=== PATIENT | female | born 1995 | race Caucasian/White ===

== ENCOUNTER 2019-04-25 01:02 | Inpatient (IN) | payer SELFPAY ==
[2019-04-25] MEDS: Lactated Ringers 1,000 ML 50 ML IV ×2 (01:42→02:31)
[2019-04-25 02:06] LABS: Absolute Lymphocyte Count 1.04 X10^3/uL (0.83-4.51); Absolute Neutrophil Count 18.2 X10^3/uL (2.0-7.7); Basophil# 0.04 X10^3/uL; Basophil% 0.2 % (0-1); Eosinophil# 0.02 X10^3/uL; Eosinophils% 0.1 % (0-5); Hematocrit 34.5 % (37-47); Hemoglobin 12.4 g/dL (12.0-15.0); Lymphocyte # 1.04 X10^3/ul (4.0); Lymphocyte % 5.1 % (19-41); Mean Corp Hgb Conc 35.9 g/dL (32-36); Mean Corpuscular Hgb 31.8 pg (27.0-32.0); Mean Corpuscular Volume 88.5 fL (81-99); Mean Platelet Vol. 10.2 fl (6.2-12.0); Monocyte# 0.83 X10^3/uL; Monocyte% 4.1 % (0-10); NRBC Flagged by Analyzer 0 % (0-5); Neutrophil # 18.21 X10^3/uL (2.7-7.7); Neutrophil % 89.8 % (47-70); Platelet Count 176 K/mm3 (150-450); RBC Distribution Width CV 12.7 % (11.6-14.6); RBC Distribution Width SD 41.4 fl (35.1-43.9); White Blood Count 20.3 K/mm3 (4.4-11.0)
[2019-04-25 02:29] VITALS: BMI 25.0
[2019-04-25] MEDS: fentaNYL-bupivacaine (epidural) 100 ML BAG EPIDURAL (02:57)
--- NOTE | 2019-04-25 05:03 | HP.PCM_ITS ---
- Problem List (1) Active labor at term Status: Acute History Date of Admission: 04/25/19 Final DARNELL: 05/03/19 Gestational age: 38 Weeks and 6 Days History of this : This is a 23 year-old, at 38 weeks gestational age presents IAL after laboring at home. she had planned a home with a visual display manager but has had her labor stall out and she is very tired and wanting intervention for pain control. she denies any vb and admits good fm. she has had an uncomplicated . Allergies No Known Allergies Allergy (Verified 04/25/19 02:28) Home Medications: Home Medications No122/Iron/Folic Acid [ Multi Tablet] 1 ea PO DAILY 04/25/19 Smoking Status: Never smoker Alcohol: None Number of Fetus(es): 1 Heart Tracing: moderate variability reactive no decelerations category I tracing [employer]: regular History Past Pregnancies: Past Pregnancies Delivery Date Name GA/Weeks Outcome Route Weight Gender Labor Length Anesthesia Delivery Location Provider FOB Labs: Mom's Problem List Problem Status Onset Code Active labor at term Acute Mom's Labs & Results 04/25/19 04/25/19 04/25/19 01:42 01:42 01:42 WBC 20.3 H RBC 3.90 L Hgb 12.4 Hct 34.5 L MCV 88.5 MCH 31.8 MCHC 35.9 RDW Std Deviation 41.4 RDW Coeff of Carlos 12.7 Plt Count 176 MPV 10.2 Immature Gran % (Auto) 0.700 Neut % (Auto) 89.8 H Lymph % (Auto) 5.1 L [place] % (Auto) 4.1 Eos % (Auto) 0.1 Baso % (Auto) 0.2 Absolute Neuts (auto) 18.2 H Absolute Lymphs (auto) 1.04 Nucleated RBC % 0 RPR Pending Hep Bs Antigen Hepatitis C Antibody HIV 1&2 Antibody Rubella IgG Antibody Pending Blood Type Antibody Screen 04/25/19 04/25/19 01:42 01:42 WBC RBC Hgb Hct MCV MCH MCHC RDW Std Deviation RDW Coeff of Carlos Plt Count MPV Immature Gran % (Auto) Neut % (Auto) Lymph % (Auto) [place] % (Auto) Eos % (Auto) Baso % (Auto) Absolute Neuts (auto) Absolute Lymphs (auto) Nucleated RBC % RPR Hep Bs Antigen Pending Hepatitis C Antibody Pending HIV 1&2 Antibody Pending Rubella IgG Antibody Blood Type A NEGATIVE Antibody Screen NEGATIVE Course Did the patient receive No care? Current Obstetrical History Gestational Diabetes No Incompetent Cervix No Infertility No IUGR No Macrosomia No Hypertension/Pre-eclampsia No Placenta Previa/Abruption No PTL/PROM No Uterine anomaly No Oligohydramnios No Polyhydramnios No Multiple gestation No Past Medical History Asthma No Diabetes No Hypertension No Heart disease No Mitral valve prolapse No Neurologic/Seizure disorder/ No Migraines Kidney disease No Liver disease No Varicosities No Clotting disorders/Hx of DVT No Thyroid Dysfunction No Other medical diseases No Psychiatric disorders No Major trauma No Abnormal PAP smear No Sleep apnea No Mammogram in the last 2 years No Social History Marital Status: Alleged father Donnie Hx Smoking No Smoking Status Never smoker How long have you used n/a substances (years)? Expected Delivery Method: Spontaneous Vaginal Review of Systems Constitutional: Denies: Fever, Malaise Eyes: Denies: Blurred vision, Vision Change HEENT: Denies: Head Aches, Visual Changes Cardiovascular: Denies: Chest Pain, Palpitations Respiratory: Denies: Cough, Shortness of Breath, Wheezing Gastrointestinal: Denies: Abdominal Pain, Diarrhea, Nausea, Vomiting Genitourinary: Denies: Dysuria, Hematuria Musculoskeletal: Denies: Joint Pain, Muscle pain Skin: Denies: Lesions, Rash Neurological: Denies: Blurred vision, Focal weakness, Headaches Psychiatric: Denies: Anxiety, Depression Endocrine: Denies: Heat/ Cold Intolerance Hematologic/ Lymphatic: Denies: Easy Bruising, Easy Bleeding Physical Exam General: Alert, Cooperative, No apparent distress HEENT: Atraumatic, Normocephalic. Negative for: Thyromegaly, Lymphadenopathy Cardiovascular: Regular rate Lungs: Normal air movement Abdomen: Soft, Non Tender, Gravid Neurological: Deep Tendon Reflexes 2+/4 and Symmetrical, Neuro grossly intact. Negative for: Clonus SALESPERSON NECKTIES: Normal external genitalia. Negative for: Vulvar lesions Estimated gestational size: Appropriate for gestational size Presentation: Cephalic Cervix Dilation (cm): 9 Station: 0 Effacement (%): 100 Assessment/Plan All Active Problems Active labor at term (Acute) This is a 23 year-old, , at 38 weeks gestational age presents IAL epidural gbs unknown but no risk factors, SROM here at hospital, would start antibiotics if signs of chorioamnionitis or SROM>18 hours
--- NOTE | 2019-04-25 07:42 | OP.PCM_ITS ---
Problem List (1) Active labor at term Status: Acute Vaginal Delivery Maternal Presentation: Active Labor ial 38w6d Amniotic Membrane Rupture Type: Spontaneous Amniotic Fluid Description: Clear Final DARNELL: 05/03/19 Gestational age: 38 Weeks and 6 Days Date of Procedure: 04/25/19 Pre-Operative Diagnosis: ial Post-Operative Diagnosis: same Surgery/ Procedure Performed: Spontaneous Vaginal Delivery Type of Anesthesia: Epidural Description of Procedure: Patient began pushing and delivered the head in the [ALEXANDER] presentation. The head was delivered atraumatically. The anterior and posterior shoulders delivered without complication followed by the rest of the infant and the was placed on the maternal abdomen. Delayed cord clamping was employed for approximately 60 seconds. Cord was clamped and cut and gentle traction was alexis lied to the cord and the placenta delivered spontaneously immediately following it was noted to be intact with three-vessel cord. The perineum and vagina were inspected and to have a second-degree perineal laceration that was repaired in the usual fashion with 3-0 Vicryl repeat. EBL was 200 cc. Patient and infant tolerated delivery well. Presentation: ALEXANDER Placental Delivery Description: Spontaneous Placenta Disposition: [facility] Cord Vessel Description: 3 Vessels Cord Entanglement: None Estimated Blood Loss: 200 Infant A gender: Female Episiotomy Description: None Laceration: Perineal Extension/lac, 2nd degree Medications given after delivery: IV Pitocin Complications: None Multi Select Codes - Urinary/Genital Urinary/Genital CPT Codes: 97741 Vaginal Delivery Only
[2019-04-25 08:16] LABS: Rubella IgG 2.6 IU/mL
[2019-04-25] MEDS: Oxytocin 30 units/NS 500 ml 30 UNITS/500 ML IV.SOLN 334 UNITS IV (08:35)
[2019-04-25 08:46] LABS: HIV - WCH Non-Reactive (Nonreactive); Hepatitis B Surface Antigen Non-Reactive (Nonreactive); Hepatitis C Antibody Non-Reactive (Nonreactive)
[2019-04-25] MEDS: Oxytocin 30 units/NS 500 ml 30 UNITS/500 ML IV.SOLN 167 UNITS IV (09:05)
--- NOTE | 2019-04-25 12:20 | NURSING ---
Received report from Sharif Recinos RN. I will assume care of patient at that time.
[2019-04-25] MEDS: Acetaminophen 500 MG Tablet 1000 MG PO ×2 (12:39→20:48)
[2019-04-25 12:41] VITALS: BP 90/52; PULSE 110; RESP 16; TEMP 37.2; O2SAT 99
[2019-04-25 16:00] VITALS: BP 111/55; PULSE 82; RESP 16; TEMP 36.7; O2SAT 98
[2019-04-25 20:00] VITALS: BP 98/50; PULSE 84; RESP 16; TEMP 37.2
[2019-04-25 23:40] VITALS: BP 104/60; PULSE 61; RESP 16; TEMP 36.9
[2019-04-26] MEDS: Naproxen 250 MG Tablet 500 MG PO (00:20)
[2019-04-26 04:00] VITALS: BP 91/51; PULSE 65; RESP 16; TEMP 36.3
--- NOTE | 2019-04-26 05:50 | DCINST_ITS ---
Discharge Diet: No Restrictions Discharge Activity: Return to Normal Activity, May not drive while taking narcotic pain medications., May Shower May resume sexual activity in: 4-6 weeks Call your doctor if your incision/area has: Continuous Slow Oozing, Sudden Increased Bleeding, Increased Pain/ Swelling, Increased Redness, Foul Smelling Discharge Additional Instructions: If you experience any of the following, contact your healthcare provider. * Bleeding that soaks a pad every hour for 2 hours * Fever 100.4 or higher * Unrelieved incision or abdominal pain * Swelling, redness, discharge or bleeding from your incision or episiotomy site * Your incision begins to separate * Problems urinating (including inability to urinate or burning while urinating). * Visual changes * Severe headache * Flu-like symptoms * Pain or redness in one of both of your breasts * Pain, warmth, tenderness or swelling in your legs, especially the calf area * Frequent nausea and vomiting * Symptoms of depression or anxiety If you experience any of the following, call 911 or go to the nearest Emergency Room. * Chest pain * Problems breathing * Seizure activity * Partial or complete paralysis of a body part, slurred speech, weakness or drooping of the face, or a sudden inability to walk or hold your balance Allergies/Adverse Reactions: Allergies No Known Allergies Allergy (Verified 04/25/19 02:28) Medications to take at Discharge No122/Iron/Folic Acid [ Multi Tablet] 1 ea PO DAILY 04/25/19 Please Follow Up With: Arlene Acevedo MD - [phone] When: Call to make an appointment with your doctor in 6 weeks. If you had elevated Blood pressure or 4th degree laceration you will need to be seen in 2 weeks. Primary Care Physician: Care Physician,No Primary [Primary Care Provider] - Test Results: Test results from this visit will be discussed in further detail at your follow- up appointment, if applicable.
--- NOTE | 2019-04-26 05:50 | PCM.DCVAG ---
Discharge Diet: No Restrictions Discharge Activity: Return to Normal Activity, May not drive while taking narcotic pain medications., May Shower May resume sexual activity in: 4-6 weeks Call your doctor if your incision/area has: Continuous Slow Oozing, Sudden Increased Bleeding, Increased Pain/ Swelling, Increased Redness, Foul Smelling Discharge Additional Instructions: If you experience any of the following, contact your healthcare provider. Bleeding that soaks a pad every hour for 2 hours Fever 100.4 or higher Unrelieved incision or abdominal pain Swelling, redness, discharge or bleeding from your incision or episiotomy site Your incision begins to separate Problems urinating (including inability to urinate or burning while urinating). Visual changes Severe headache Flu-like symptoms Pain or redness in one of both of your breasts Pain, warmth, tenderness or swelling in your legs, especially the calf area Frequent nausea and vomiting Symptoms of depression or anxiety If you experience any of the following, call 911 or go to the nearest Emergency Room. Chest pain Problems breathing Seizure activity Partial or complete paralysis of a body part, slurred speech, weakness or drooping of the face, or a sudden inability to walk or hold your balance Allergies/Adverse Reactions: Allergies No Known Allergies Allergy (Verified 04/25/19 02:28) Medications to take at Discharge No122/Iron/Folic Acid [ Multi Tablet] 1 ea PO DAILY 04/25/19 Please Follow Up With: Arlene Acevedo MD - [phone] When: Call to make an appointment with your doctor in 6 weeks. If you had elevated Blood pressure or 4th degree laceration you will need to be seen in 2 weeks. Primary Care Physician: Care Physician,No Primary [Primary Care Provider] - Test Results: Test results from this visit will be discussed in further detail at your follow-up appointment, if applicable.
--- NOTE | 2019-04-26 07:38 | PN.OBGYN_ITS ---
Patient Problems: Active and Suspected Problems Active labor at term (Acute) Subjective: doing well no complaints pain controlled no CP SOB N V ambulating well tolerating po lochia moderate, going well - Physical Exam General: Alert, Oriented x3 Abdomen: Soft, Non Tender, Non-Distended, - - FF below U Vital Signs Temp Pulse Resp BP Pulse Ox 97.3 F L 65 16 91/51 L 98 04/26/19 04:00 04/26/19 04:00 04/26/19 04:00 04/26/19 04:00 04/25/19 16:00 Oxygen Delivery Method Room Air Weight: 150 lb Body Mass Index (BMI) 25.0 Intake and Output for Last 24 Hours 04/24/19 04/25/19 04/26/19 23:59 23:59 23:59 Output Total 1000 / 1000 Balance -1000 / -1000 Laboratory Tests Past 24 Hrs 04/25/19 04/25/19 04/25/19 01:42 01:42 11:50 Hep Bs Antigen Non-Reactive Hepatitis C Antibody Non-Reactive HIV 1&2 Antibody Non-Reactive Rubella IgG Antibody 2.6 Screen NEGATIVE Baby's Blood Type A POSITIVE Baby's AMBER NEGATIVE Medical Necessity - Tobacco Use Smoking Status: Never smoker Assessment/Plan All Active Problems Active labor at term (Acute) s/p PPD # 1 1. routine post delivery care 2. breast feeding- support given 3. rh negative 4. rubella pending 5. home today 6. Plans 6 wk follow up with tetryl nitrator operator
[2019-04-26 09:30] VITALS: BP 101/45; PULSE 92; RESP 16; TEMP 37.2; O2SAT 97
[2019-04-26 14:00] VITALS: BP 88/40; PULSE 84; RESP 16; TEMP 36.8; O2SAT 99
--- NOTE | 2019-04-26 16:05 | NURSING ---
Bedside report given to chadd ballard at 1515.
[2019-04-26 19:49] VITALS: BP 113/67; PULSE 82; RESP 16; TEMP 36.6; O2SAT 100
[2019-04-30 04:45] LABS: Rapid Plasmin Reagin (RPR) NONREACTIVE (NONREACTIVE)
== END 2019-04-26 20:39 | disposition home or self-care (01) | DRG 807 ==
PROVIDERS: Admitting Provider Obstetrics & Gynecology; Referring Provider Obstetrics & Gynecology; Visit Provider Obstetrics & Gynecology
DX: O70.1 Second degree perineal laceration during delivery (principal); Z37.0 Single live birth; Z3A.38 38 weeks gestation of pregnancy
CPT/HCPCS: 59025; 59050; 85025; 85461; 86592; 86703; 86762; 86803; 86850; 86900; 87340; 90384; 99218; J7120; G0378; J2790

== ENCOUNTER 2021-01-08 00:45 | Inpatient (IN) | payer SELFPAY ==
[2021-01-08] VITALS (18 sets, daily range): BP systolic 95–139; BP diastolic 48–74; PULSE 61–92; RESP 16–18; TEMP 36.6–37.3; O2SAT 96–100; BMI 25.7
[2021-01-08] MEDS: Lactated Ringers 500 ML 999 ML IV (00:58)
[2021-01-08 01:23] LABS: Absolute Lymphocyte Count 1.54 X10^3/uL (0.83-4.51); Absolute Neutrophil Count 9.8 X10^3/uL (2.0-7.7); Basophil# 0.02 X10^3/uL; Basophil% 0.2 % (0-1); Eosinophil# 0.03 X10^3/uL; Eosinophils% 0.2 % (0-5); Hematocrit 37.8 % (37-47); Hemoglobin 12.9 g/dL (12.0-15.0); Lymphocyte # 1.54 X10^3/ul (0.83-4.51); Lymphocyte % 12.7 % (19-41); Mean Corp Hgb Conc 34.1 g/dL (32-36); Mean Corpuscular Hgb 30.8 pg (27.0-32.0); Mean Corpuscular Volume 90.2 fL (81-99); Mean Platelet Vol. 10.1 fl (6.2-12.0); Monocyte# 0.61 X10^3/uL; NRBC Flagged by Analyzer 0 % (0-5); Neutrophil # 9.84 X10^3/uL (2.7-7.7); Neutrophil % 81.6 % (47-70); Platelet Count 221 K/mm3 (150-450); RBC Distribution Width CV 13.1 % (11.6-14.6); RBC Distribution Width SD 42.5 fl (35.1-43.9); Red Blood Count 4.19 M/mm3 (4.2-5.4); White Blood Count 12.1 K/mm3 (4.4-11.0)
[2021-01-08 01:24] LABS: Mucous, Urine 0 SEEN /hpf (<or=2+)
[2021-01-08 01:27] LABS: Color, Urine Yellow (Yellow); Glucose, Dipstick Normal (Normal); Ketone-Dipstick Negative (Negative); Leukocyte Esterase-Dipstick 25 /ul (Negative); Nitrite-Dipstick Negative (Negative); Occult Blood-Urine 250 /ul (Negative); Protein-Dipstick Negative (Negative); Specific Gravity, Urine 1.015 (1.002-1.030); Urine Bilirubin Dipstick Negative (Negative); Urine Clarity Sl. Cloudy (Clear); Urine Urobilinogen Normal (Normal)
[2021-01-08] MEDS: Lactated Ringers 1,000 ML 200 ML IV (01:30)
[2021-01-08 01:33] LABS: White Blood Cells 5-10 SEEN /hpf (0-5)
[2021-01-08 01:34] LABS: Bacteria 3+ /hpf (None Seen); Red Blood Cells-Urine 50-100 SEEN /hpf (0-5); Squamous Epithelial Cells - UA 0-5 SEEN /hpf (5-10); Transitional Epithelial - Ur 0-5 SEEN /hpf (0-5)
[2021-01-08 01:41] LABS: Amphetamine Urine VISTA NEGATIVE (<1000 ng/mL); Barbiturate Urine VISTA NEGATIVE (< 200 ng/mL); Benzodiazepine Urine VISTA NEGATIVE (< 200 ng/mL); Cocaine Urine VISTA NEGATIVE (< 300 ng/mL); Ecstacy Urine VISTA NEGATIVE (< 500 ng/mL); Methadone Urine VISTA NEGATIVE (< 300 ng/mL); PCP Urine VISTA NEGATIVE (< 25 ng/mL); THC Urine VISTA NEGATIVE (< 50 ng/mL); Vista UDS pH Range 8
[2021-01-08 01:46] LABS: Bedside Glucose 115 mg/dL (70-110)
[2021-01-08] MEDS: Oxytocin 30 units/NS 500 ml 30 UNITS/500 ML IV.SOLN 334 UNITS IV (02:02)
--- NOTE | 2021-01-08 02:18 | PCM.HP.OB ---
- Problem List (1) Active labor at term Status: Acute History Date of Admission: 04/25/19 Final DARNELL: 12/28/20 Gestational age: 41 Weeks and 4 Days History of this : This is a 25 year-old, G 2, P 1 at 41 weeks gestational age. Patient was attempting a home and had been approximately 5 cm and sandra for multiple hours with no progress. She became extremely uncomfortable and decided to come to the hospital to get an epidural. Upon arrival, her water was found to be broken and she had made change from 5 to 9 cm. Allergies No Known Allergies Allergy (Verified 01/08/21 01:28) Home Medications: Home Medications No122/Iron/Folic Acid [ Multi Tablet] 1 ea PO DAILY 04/25/19 Smoking Status: Never smoker Alcohol: None NST - FHR Rate Baby A Baseline: 150 Variability:: Moderate Accelerations:: 15 x 15 Decelerations:: None NST Reactive:: Yes FHR Category:: Category I Uterine Activity:: q1-2 History Past Pregnancies: Past Pregnancies Delivery Date Name GA/ Weeks Outcome Route Wt Sex Labor Length Anesthesia Delivery Location Provider FOB Labs: Pending- Rh- per her set up and charger Expected Delivery Method: Spontaneous Vaginal Review of Systems Constitutional: Denies: Chills, Fever HEENT: Denies: Head Aches Cardiovascular: Denies: Chest Pain, Chest Pressure, Light Headedness Respiratory: Denies: Shortness of Breath Gastrointestinal: Reports: Abdominal Pain. Denies: Nausea, Vomiting Genitourinary: Denies: Dysuria, Frequency Gynecological: Reports: Vaginal bleeding, Vaginal discharge. Denies: Vaginal itching Psychiatric: Denies: Anxiety, Depression Physical Exam Vitals: Vital Signs Temp Pulse BP Pulse Ox 97.9 F 92 112/59 L 99 01/08/21 01:00 01/08/21 01:00 01/08/21 01:00 01/08/21 01:00 General: Alert, Oriented x3, Cooperative, No apparent distress, Well developed, Well nourished HEENT: Atraumatic, PERRLA, EOMI, Normocephalic Cardiovascular: Regular rate Lungs: Normal air movement Abdomen: Soft, Non Tender, Non-Distended, Gravid, Appropriate for Gestational Age Extremities:: No edema Neurological: Cranial nerves II-XII grossly intact, Neuro grossly intact SIGNALS COLLECTION TECHNICIAN: Normal external genitalia Estimated gestational size: Appropriate for gestational size Presentation: Cephalic Cervix Dilation (cm): 10 Station: 2 Effacement (%): 100 Assessment/Plan All Active Problems Active labor at term (Acute) This is a 25 year-old, G 2, P 1, at 41 weeks gestational age admitted in active labor. Active labor -Patient made change from 5 cm prior to leaving her home to 9 cm on arrival -Patient found to be in advanced labor on arrival and was unable to get epidural in time for delivery -Followed with set up and charger for care-new OB labs ordered -Patient declined Covid testing
--- NOTE | 2021-01-08 02:23 | OP.PCM_ITS ---
Problem List (1) Active labor at term Status: Acute Vaginal Delivery Maternal Presentation: Active Labor 25-year-old G2, P1 at 41 weeks gestation admitted in active labor. Patient found to be 9 cm initially on presentation and made rapid cervical change to complete dilation before she was able to receive an epidural. Amniotic Membrane Rupture Type: Spontaneous at home Rupture of Membrane time: 0110 Amniotic Fluid Description: Clear Final DARNELL: 12/28/20 Final DARNELL Source: LMP Gestational age: 41 Weeks and 4 Days Date of Procedure: 01/08/21 Pre-Operative Diagnosis: Term , active labor Post-Operative Diagnosis: Same Surgery/ Procedure Performed: Spontaneous Vaginal Delivery Type of Anesthesia: Local with 1% lidocaine Description of Procedure: Patient began pushing and delivered the head in the ALEXANDER presentation. The head was delivered atraumatically and no nuchal cord was noted. The anterior and posterior shoulders delivered without complication followed by the rest of the and the infant was placed on the maternal abdomen. Delayed cord clamping was employed for approximately 60 seconds. Cord was clamped and cut and gentle traction was applied to the cord and the placenta delivered spontaneously immediately following it was noted to be intact with three-vessel cord. The perineum and vagina were inspected and a midline second-degree laceration was noted and instilled with 20 cc of 1% lidocaine. This was repaired in the standard fashion using 3-0 Vicryl repeat suture. EBL was 250 cc. Patient and infant tolerated delivery well. Presentation: Vertex, ALEXANDER Placental Delivery Description: Spontaneous Placenta Disposition: [facility] Cord Vessel Description: 3 Vessels Cord Entanglement: True Knot(s) Estimated Blood Loss: 250 Infant A gender: Female Episiotomy Description: None Laceration: Midline, Perineal Extension/lac, 2nd degree Medications given after delivery: IV Pitocin Complications: None Multi Select Codes - Urinary/Genital Urinary/Genital CPT Codes: 24800 Vaginal Delivery [facility]
--- NOTE | 2021-01-08 02:26 | DCINST_ITS ---
Discharge Diet: No Restrictions Discharge Activity: Return to Normal Activity, May not drive while taking narcotic pain medications., May Shower May resume sexual activity in: 4-6 weeks Additional Activity Instructions:: Nothing in the vagina for 4-6 weeks. You may return to work/school in 6 weeks. Call your doctor if your incision/area has: Continuous Slow Oozing, Sudden Increased Bleeding, Increased Pain/ Swelling, Increased Redness, Foul Smelling Discharge Additional Instructions: If you experience any of the following, contact your healthcare provider. * Bleeding that soaks a pad every hour for 2 hours * Fever 100.4 or higher * Unrelieved incision or abdominal pain * Swelling, redness, discharge or bleeding from your incision or episiotomy site * Your incision begins to separate * Problems urinating (including inability to urinate or burning while urinating). * Visual changes * Severe headache * Flu-like symptoms * Pain or redness in one of both of your breasts * Pain, warmth, tenderness or swelling in your legs, especially the calf area * Frequent nausea and vomiting * Symptoms of depression or anxiety If you experience any of the following, call 911 or go to the nearest Emergency Room. * Chest pain * Problems breathing * Seizure activity * Partial or complete paralysis of a body part, slurred speech, weakness or drooping of the face, or a sudden inability to walk or hold your balance Allergies/Adverse Reactions: Allergies No Known Allergies Allergy (Verified 01/08/21 01:28) Medications to take at Discharge No122/Iron/Folic Acid [ Multi Tablet] 1 ea PO DAILY 04/25/19 When: Call to make an appointment with your doctor in 6 weeks. If you had e levated Blood Pressure or 4th degree laceration you will need to be seen in 2 weeks. Primary Care Physician: Care Physician,No Primary [Primary Care Provider] - Test Results: Test results from this visit will be discussed in further detail at your follow- up appointment, if applicable.
--- NOTE | 2021-01-08 02:26 | PCM.DCVAG ---
Discharge Diet: No Restrictions Discharge Activity: Return to Normal Activity, May not drive while taking narcotic pain medications., May Shower May resume sexual activity in: 4-6 weeks Additional Activity Instructions:: Nothing in the vagina for 4-6 weeks. You may return to work/school in 6 weeks. Call your doctor if your incision/area has: Continuous Slow Oozing, Sudden Increased Bleeding, Increased Pain/ Swelling, Increased Redness, Foul Smelling Discharge Additional Instructions: If you experience any of the following, contact your healthcare provider. Bleeding that soaks a pad every hour for 2 hours Fever 100.4 or higher Unrelieved incision or abdominal pain Swelling, redness, discharge or bleeding from your incision or episiotomy site Your incision begins to separate Problems urinating (including inability to urinate or burning while urinating). Visual changes Severe headache Flu-like symptoms Pain or redness in one of both of your breasts Pain, warmth, tenderness or swelling in your legs, especially the calf area Frequent nausea and vomiting Symptoms of depression or anxiety If you experience any of the following, call 911 or go to the nearest Emergency Room. Chest pain Problems breathing Seizure activity Partial or complete paralysis of a body part, slurred speech, weakness or drooping of the face, or a sudden inability to walk or hold your balance Allergies/Adverse Reactions: Allergies No Known Allergies Allergy (Verified 01/08/21 01:28) Medications to take at Discharge No122/Iron/Folic Acid [ Multi Tablet] 1 ea PO DAILY 04/25/19 When: Call to make an appointment with your doctor in 6 weeks. If you had elevated Blood Pressure or 4th degree laceration you will need to be seen in 2 weeks. Primary Care Physician: Care Physician,No Primary [Primary Care Provider] - Test Results: Test results from this visit will be discussed in further detail at your follow-up appointment, if applicable.
[2021-01-08] MEDS: Naproxen 250 MG Tablet 500 MG PO ×2 (02:50→19:21)
[2021-01-08 03:19] LABS: Chlamydia Trachomatis by PCR Negative (Negative); Group B Strep DNA By PCR Negative (Negative); Internal Control PASS; Neisserai gonorrhoeae by PCR Negative (Negative); Probe Check PASS; Sample Adequacy Control PASS; Specimen Processing Control PASS
--- NOTE | 2021-01-08 04:56 | NURSING ---
Waiting for multiple labs to result.
[2021-01-08 09:02] LABS: Rubella IgG Non-Reactive (Nonreactive); Syphilis Antibodies Non-reactive
[2021-01-08 09:21] LABS: HIV - WCH Non-Reactive (Nonreactive); Hepatitis B Surface Antigen Non-Reactive (Nonreactive); Hepatitis C Antibody Non-Reactive (Nonreactive)
[2021-01-08] MEDS: Acetaminophen 500 MG Tablet 1000 MG PO (12:32)
--- NOTE | 2021-01-08 15:47 | NURSING ---
Pt's Rubella status came back non-reactive - educated pt on meaning of this and option to get the MMR vaccine - pt declined at this time - suggested for pt to discuss it with her MD.
[2021-01-09 00:25] VITALS: BP 103/57; PULSE 67; RESP 18; O2SAT 97
[2021-01-09 05:03] VITALS: BP 107/51; PULSE 62; RESP 18
--- NOTE | 2021-01-09 07:52 | PN.OBGYN_ITS ---
Patient Problems: Active and Suspected Problems Active labor at term (Acute) Subjective: Patient doing well without complaints. Tolerating PO. Ambulating and voiding without difficulty. Breast feeding well. Denies chest pain, shortness of breath, calf pain/swelling, fevers, chills, lightheadedness. - Physical Exam Vitals/I&O's: Vital Signs Temp Pulse Resp BP Pulse Ox 98.5 F 62 18 107/51 L 97 01/08/21 20:17 01/09/21 05:03 01/09/21 05:03 01/09/21 05:03 01/09/21 00:25 Oxygen Delivery Method Room Air Weight: 150 lb Body Mass Index (BMI) 25.7 Intake and Output for Last 24 Hours 01/07/21 01/08/21 01/09/21 23:59 23:59 23:59 Intake Total 1047.01 / 1047.01 Output Total 1500 / 1500 Balance -452.99 / -452.99 General: Alert, Oriented x3 Abdomen: Soft, Non Tender, Non-Distended, - - FF below U Laboratory Results 01/08/21 00:58: Syphilis Total Ab Non-reactive, Rubella IgG Antibody Non- Reactive 01/08/21 00:58: Hep Bs Antigen Non-Reactive, Hepatitis C Antibody Non-Reactive, HIV 1&2 Antibody Non-Reactive Current Medications Acetaminophen (Acetaminophen 500 Mg Tablet) 1,000 mg PO Q8H PRN PRN PRN Reason: Pain Score 1-3 Last Admin: 01/08/21 12:32 Dose: 1,000 mg Documented by: Bisacodyl (Bisacodyl 10 Mg Suppository) 10 mg RC UD PRN PRN Reason: If no BM Dibucaine (Dibucaine 30 Gm Tube) 1 applic TOPICAL TID PRN PRN; Protocol PRN Reason: Discomfort Hydrocortisone (Hydrocortisone 2.5% Crm) 1 applic TOPICAL TID PRN PRN; Protocol PRN Reason: Discomfort Methylergonovine Maleate (Methylergonovine 0.2 Mg/Ml Ampul) 0.2 mg IM X1 PRN PRN Reason: Excess bleeding/uterine atony Naproxen (Naproxen 250 Mg Tablet) 500 mg PO Q8H PRN PRN PRN Reason: Pain Score 1-3 Last Admin: 01/08/21 19:21 Dose: 500 mg Documented by: Ondansetron HCl (Ondansetron 4 Mg/2 Ml Vial) 4 mg IV Q4H PRN PRN PRN Reason: Nausea Oxycodone HCl (Oxycodone 5 Mg Tablet) 5 - 10 mg PO Q4H PRN PRN PRN Reason: Pain Score 4-10 Senna/Docusate Sodium (Senna/Docusate Sodium 1 Tablet) 1 - 2 tablet PO DAILY PRN PRN PRN Reason: Constipation Simethicone (Simethicone 80 Mg Tablet) 80 mg PO PCHS PRN PRN Reason: Indigestion/Stomach pain Sodium Chloride (0.9% Saline Lock 10 Ml Syringe) 5 - 15 ml IV UD PRN PRN Reason: SALINE FLUSH Medical Necessity - Tobacco Use Smoking Status: Never smoker Assessment/Plan All Active Problems Active labor at term (Acute) s/p PPD # 1 1. routine post delivery care 2. breast feeding- support given 3. rh negative 4. rubella pending 5. home today
[2021-01-09 09:18] VITALS: BP 108/58; PULSE 74; RESP 16; TEMP 36.3
== END 2021-01-09 10:05 | disposition home or self-care (01) | DRG 807 ==
PROVIDERS: Admitting Provider Obstetrics & Gynecology; Visit Provider Obstetrics & Gynecology
DX: O70.1 Second degree perineal laceration during delivery (principal); Z37.0 Single live birth; Z3A.41 41 weeks gestation of pregnancy
CPT/HCPCS: 59025; 59050; 80307; 81001; 82962; 85025; 85461; 86703; 86762; 86780; 86803; 86850; 86900; 86901; 87081; 87340; 87491; 87591; 87653; 90384; 99218; J7120; G0378; J2790